=== PATIENT | female | born 1940 | race African-American/Black ===

== ENCOUNTER 2019-02-17 08:00 | Day surgery (SDC) | payer OTHER | END 2019-02-17 10:05 | disposition home or self-care (01) | LOC: FASU-ENDO 08:00 ==

== ENCOUNTER 2019-05-14 22:32 | Inpatient (IN) | payer OTHER ==
[2019-05-14 23:18] LABS: EOS % 1.3 % (0-4.5); HEMATOCRIT 31.7 % (32.4-45.2); HEMOGLOBIN 10.5 GM/dl (10.7-15.3); MCH 27.8 pg (25.7-33.7); MCHC 33.1 g/dl (32.0-36.0); MEAN CELL VOLUME 84.2 fl (80-96); MEAN PLT VOLUME 8.3 fl (7.5-11.1); NEUT % 67.7 % (42.8-82.8); PLATELET COUNT 202 K/MM3 (134-434); RBC 3.76 M/mm3 (3.60-5.2); RDW 12.1 % (11.6-15.6); WHITE BLOOD COUNT 4.9 K/mm3 (4.0-10.8)
[2019-05-14 23:30] LABS: ALBUMIN 3.9 g/dl (3.4-5.0); BILIRUBIN,TOTAL 0.5 mg/dl (0.2-1); CALCIUM 9.3 mg/dl (8.5-10); CREATININE 0.7 mg/dl (0.55-1.3); POTASSIUM 4.7 mmol/L (3.5-5.1); TOT PROT 7.9 g/dl (6.4-8.2)
[2019-05-15] MEDS ORDERED: ONDANSETRON 4 MG/2 ML VIAL IVPUSH ONE (01:53)
[2019-05-15] MEDS ORDERED: ONDANSETRON 4 MG/2 ML VIAL ONE (01:54)
--- NOTE | 2019-05-15 02:32 | PDOC ---
Documentation entered by Vicky Clifford SCRIBE, acting as scribe for Sarahy Silver MD. Sarahy Silver MD: This documentation has been prepared by the Darrin cedeno Adrianna, SCRIBE, under my direction and personally reviewed by me in its entirety. I confirm that the documentation accurately reflects all work, treatment, procedures, and medical decision making performed by me. History of Present Illness - General Chief Complaint: Migraine Headache Stated Complaint: H/A, DOUBLE VISION Time Seen by Provider: 05/14/19 22:37 - History of Present Illness Initial Comments: 05/14/19 23:21 This 78-year-old woman with a history of HTN/asthma/posterior circulation cerebral aneurysm ("small") presents with occipital headache/neck pain that began mid evening. Patient states that she had sudden severe burning type pain in the back of her head while watching television few hours prior to presentation. This was accompanied by nausea and vision changes: Patient describes "double vision" in both eyes that began at the same time as the pain and continued until she presented here in the ER. Her vision is currently without distortion. At home, she applied warm compresses to the back of her neck and took her high blood pressure medications (no other medications for headache pain)and her headache pain has improved to "3/10" severity level currently. Patient had a similar headache occurring the back of her head and neck 4 days ago. This headache was also severe and resolved with warm compresses to the neck. Although the patient has a history of intermittent headache in the past, no features consistent with migraine headaches have been present previously. Patient denies difficulty speaking/vertigo/facial or extremity weakness According to patient and her family, work-up of headaches a few years ago involved CT angiogram: This is when posterior circulation aneurysm was discovered History of left hip fracture earlier this year; recently discharged from inpatient rehab No history of smoking/daily alcohol use or other recreational drug use. Past History - Past Medical History Allergies/Adverse Reactions: Allergies Allergy/AdvReac Type Severity Reaction Status Date / Time FRANCESCA Inhibitors Allergy Severe Swelling Verified 01/07/14 07:54 nifedipine [From Procardia] Allergy Severe Low Blood Verified 01/07/14 07:54 Pressure Home Medications: Ambulatory Orders Clonidine HCl 0.2 mg PO BID 11/22/13 Furosemide [Lasix -] 20 mg PO DAILY 11/22/13 Amlodipine Besylate [Norvasc -] 10 mg PO DAILY 01/07/14 Losartan Potassium [Cozaar] 50 mg PO BID 01/07/14 Albuterol Sulfate Inhaler - [Ventolin Hfa Inhaler -] 1 - 2 inh PO Q4H PRN Aspirin [Aspirin EC] 81 mg PO DAILY 02/16/19 Azelastine/Fluticasone [Dymista Nasal [place]] 23 gm NS DAILY 02/16/19 Calcium Carb/Vitamin D3/Vit K1 [Viactiv 650 mg-12.5 Mcg Chew] 1 each PO BID Carbamazepine 100 mg PO TID 02/16/19 Carbamazepine 200 mg PO TID 02/16/19 Lamotrigine [Lamictal -] 100 mg PO TID 02/16/19 Metoprolol Succinate [Toprol Xl] 100 mg PO BID 02/16/19 Montelukast Na [Singulair -] 10 mg PO HS 02/16/19 Spironolactone [Aldactone] 50 mg PO DAILY 02/16/19 Anemia: No Asthma: Yes Cancer: No Cardiac Disorders: Yes (HEART MURMOR) CVA: No COPD: No CHF: No Dementia: No Diabetes: No GI Disorders: No Disorders: No HTN: Yes Hypercholesterolemia: No Liver Disease: No Seizures: No Thyroid Disease: No Other medical history: CEREBRAL ANEURYSM - Surgical History Abdominal Surgery: Yes (Exploratory Lap x2 for obstruction) Appendectomy: Yes Cardiac Surgery: No Cholecystectomy: Yes Lung Surgery: No Neurologic Surgery: No Orthopedic Surgery: Yes (Left Hip Replacement 09/11/18) - Psycho Social/Smoking Cessation Hx Smoking History: Never smoked Have you smoked in the past 12 months: No Number of Cigarettes Smoked Daily: 0 Hx Alcohol Use: No Drug/Substance Use Hx: No Substance Use Type: None Hx Substance Use Treatment: No Review of Systems - Review of Systems Able to Perform ROS?: Yes Comments:: 12 point review of systems is negative except for what is noted in the history of present illness *Physical Exam - Vital Signs Last Vital Signs Temp Pulse Resp BP Pulse Ox 97.4 F L 67 16 187/54 H 98 05/14/19 22:35 05/14/19 22:35 05/14/19 22:35 05/14/19 22:35 05/14/19 22:35 - Physical Exam Comments: GENERAL: Adult female, alert and oriented x3, no acute distress HEAD: Normal with no signs of trauma. EYES: PERRLA, EOMI, sclera anicteric, conjunctiva clear. ENT: Ears normal, nares patent, oropharynx clear without exudates. Dry mucous membranes. NECK: Normal range of motion, supple without lymphadenopathy, JVD, or masses. No meningismus. Mild paraspinal pain elicited with full flexion LUNGS: Breath sounds equal, clear to auscultation bilaterally. No wheezes, and no crackles. HEART:Regular rate and rhythm, normal S1 and S2 3/6 systolic murmur left sternal border, rub or gallop. ABDOMEN:.normal bowel sounds No guarding,tenderness or rebound.No masses No distention. EXTREMITIES: Normal range of motion, no edema. No clubbing or cyanosis. No erythema, or tenderness. NEUROLOGICAL: Cranial nerves II through XII grossly intact. Normal speech. No pronator drift. Motor 5/5 throughout twelve-lead electrocardiogram Twelve-lead electrocardiogram is performed performed: Normal sinus rhythm at 60 bpm. First-degree AV block with MO interval of 216 MS. LVH with repolarization abnormality. No acute ST wave abnormalities. No previous EKG tracing available for comparison. ED Treatment Course - LABORATORY CBC & Chemistry Diagram: 05/14/19 22:52 05/14/19 23:11 Medical Decision Making - Medical Decision Making As noted above, this 78-year-old woman with a history of hypertension presents with history of severe occipital headache accompanied by nausea/vision changes few hours prior to presentation. Past history notable for apparent posterior circulation cerebral aneurysm seen on CT angiogram performed a few years ago. Patient has improvement in her symptoms on presentation. Exam as noted. CBC/chemistry profile essentially normal Noncontrast head CT reveals no evidence of acute intracranial pathology. Patient currently free of any headache pain (states that pain "comes and goes") but still has some residual nausea. Patient given Zofran 4 mg IV. 05/15/19 01:[address] Vasquez who is on-call for neurology: Admission for 24- hour observation warranted in this patient with history of severe headache and apparent posterior circulation aneurysm. ESR should be evaluated, as well as repeat of standard labs in the morning. CT angiogram planned for tomorrow 05/15/19 02:33 Patient[address] [facility] Carty of [facility] ([facility] not admit here). [facility] of [facility]ist service. Patient admitted (inpatient status) to Dr. Harris. Discharge - Discharge Information Problems reviewed: Yes Clinical Impression/Diagnosis: Cerebrovascular aneurysm, Recurrent occipital headache Condition: Stable - Admission Yes - Follow up/Referral - Patient Discharge Instructions - Post Discharge Activity
[2019-05-15 03:17] VITALS: BMI 23.2
[2019-05-15] MEDS ORDERED: ALBUTEROL SO4 8 GM HFA INHALER IH PRN (07:18)
[2019-05-15 09:30] LABS: BASO % 0.6 % (0-2.0); EOS % 1.7 % (0-4.5); HEMATOCRIT 28.8 % (32.4-45.2); HEMOGLOBIN 9.7 GM/dl (10.7-15.3); MCH 28.5 pg (25.7-33.7); MCHC 33.7 g/dl (32.0-36.0); MEAN CELL VOLUME 84.7 fl (80-96); MEAN PLT VOLUME 8.9 fl (7.5-11.1); MONO % 9.6 % (3.8-10.2); NEUT % 62.1 % (42.8-82.8); PLATELET COUNT 179 K/MM3 (134-434); RDW 12.1 % (11.6-15.6); WHITE BLOOD COUNT 4.5 K/mm3 (4.0-10.8)
[2019-05-15 09:34] LABS: AMORP PHOS 3+ /hpf (NONE SEEN); EPITHELIAL CELLS FEW /hpf
[2019-05-15 09:34] LABS: CALCIUM 9.1 mg/dl (8.5-10); CREATININE 0.6 mg/dl (0.55-1.3); POTASSIUM 4.4 mmol/L (3.5-5.1)
--- NOTE | 2019-05-15 09:43 | PN ---
Progress Note (short form) - Note Progress Note: Patient is admitted to the floor CTA done not read If headache is better and no aneurysm on CAt patient can go home I can see [facility] patient on follow up tomorrow at 2:30 in my office Best regards Lorraine Vasquez MD
[2019-05-15] MEDS ORDERED: PATIENT'S OWN MEDICATION (NON-FORMULARY) (Clonidine Hcl [Clonidine Hcl] 0.2 MG) PO SCH (10:00)
[2019-05-15] MEDS ORDERED: FUROSEMIDE 20 MG TABLET (FP) PO SCH (10:00)
[2019-05-15] MEDS ORDERED: amLODIPine BESYLATE 10 MG TABLET (FP) PO SCH (10:00)
[2019-05-15] MEDS ORDERED: LOSARTAN POTASSIUM 50 MG TABLET (FP) PO SCH (10:00)
[2019-05-15] MEDS: cloNIDine HCL 0.1 MG TABLET PO SCH ×2 (10:08→10:13)
--- NOTE | 2019-05-15 10:51 | EKG ---
Test Reason : Blood Pressure : / mmHG Vent. Rate : 060 BPM Atrial Rate : 060 BPM P-R Int : 216 ms QRS Dur : 080 ms QT Int : 422 ms P-R-T Axes : 090 016 162 degrees QTc Int : 422 ms SINUS RHYTHM WITH 1ST DEGREE A-V BLOCK LEFT VENTRICULAR HYPERTROPHY WITH REPOLARIZATION ABNORMALITY ABNORMAL ECG NO PREVIOUS ECGS AVAILABLE Confirmed by ANNIE SALDAÑA MD ([id number]) on 05/15/2019 10:50:46 AM Referred By: DR FERNANDES Confirmed By:ANNIE SALDAÑA MD
--- NOTE | 2019-05-15 11:18 | HP ---
CHIEF COMPLAINT: Headache, vision changes PCP: Dr. 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 Patient states that she had sudden severe burning type pain in the back of her head while watching television for a few hours prior to presentation. This was accompanied by nausea and double vision in both eyes. Patient's , a retired radiologist, was present and states patient showed no focal deficints: no change in speech, no facial droop, no gait instability, no limb weakness. Symptoms were resolved by time patient came to ED. 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 Smoking: never Alcohol: no Drugs: no Allergies FRANCESCA Inhibitors Allergy (Severe, Verified 01/07/14 07:54) Swelling nifedipine [From Procardia] Allergy (Severe, Verified 01/07/14 07:54) Low Blood Pressure Home Medications Medication Instructions Recorded Clonidine HCl 0.2 mg PO BID 11/22/13 Furosemide [Lasix -] 20 mg PO DAILY 11/22/13 Amlodipine Besylate [Norvasc -] 10 mg PO DAILY 01/07/14 Losartan Potassium [Cozaar] 50 mg PO BID 01/07/14 Albuterol Sulfate Inhaler - 1 - 2 inh PO Q4H PRN 02/16/19 [Ventolin Hfa Inhaler -] Aspirin [Aspirin EC] 81 mg PO DAILY 02/16/19 Azelastine/Fluticasone [Dymista 23 gm NS DAILY 02/16/19 Nasal [place]] Calcium Carb/Vitamin D3/Vit K1 1 each PO BID 02/16/19 [Viactiv 650 mg-12.5 Mcg Chew] Carbamazepine 100 mg PO TID 02/16/19 Carbamazepine 200 mg PO TID 02/16/19 Lamotrigine [Lamictal -] 100 mg PO TID 02/16/19 Metoprolol Succinate [Toprol Xl] 100 mg PO BID 02/16/19 Montelukast Na [Singulair -] 10 mg PO HS 02/16/19 Spironolactone [Aldactone] 50 mg PO DAILY 02/16/19 REVIEW OF SYSTEMS CONSTITUTIONAL: Absent: fever, chills, diaphoresis, generalized weakness, malaise, loss of appetite, weight change HEENT: Absent: rhinorrhea, nasal congestion, throat pain, throat swelling, difficulty swallowing, mouth swelling, ear pain, eye pain, visual changes CARDIOVASCULAR: Absent: chest pain, syncope, palpitations, irregular heart rate, lightheadedness , peripheral edema RESPIRATORY: Absent: cough, shortness of breath, dyspnea with exertion, orthopnea, wheezing, stridor, hemoptysis GASTROINTESTINAL: Absent: abdominal pain, abdominal distension, nausea, vomiting, diarrhea, constipation, melena, hematochezia GENITOURINARY: Absent: dysuria, frequency, urgency, hesitancy, hematuria, flank pain, genital pain MUSCULOSKELETAL: Absent: myalgia, arthralgia, joint swelling, back pain, neck pain SKIN: Absent: rash, itching, pallor HEMATOLOGIC/IMMUNOLOGIC: Absent: easy bleeding, easy bruising, lymphadenopathy, frequent infections ENDOCRINE: Absent: unexplained weight gain, unexplained weight loss, heat intolerance, cold intolerance NEUROLOGIC: +headache, double vision Absent: focal weakness or paresthesias, dizziness, unsteady gait, seizure, mental status changes, bladder or bowel incontinence PSYCHIATRIC: Absent: anxiety, depression, suicidal or homicidal ideation, hallucinations. PHYSICAL EXAMINATION Vital Signs - 24 hr 05/14/19 05/15/19 05/15/19 22:35 00:34 02:56 Temperature 97.4 F L 97.9 F Pulse Rate 67 62 Pulse Rate [ 56 L Radial] Respiratory 16 16 16 Rate Blood Pressure 187/54 H 137/44 L Blood Pressure 139/63 [Arm] O2 Sat by Pulse 98 97 97 Oximetry (%) 05/15/19 05/15/19 05/15/19 06:41 08:25 08:38 Temperature 97.5 F L Pulse Rate 54 L 58 L Pulse Rate [ Radial] Respiratory 18 18 19 Rate Blood Pressure 134/50 L 152/57 L Blood Pressure [Arm] O2 Sat by Pulse 96 96 96 Oximetry (%) 05/15/19 10:09 Temperature Pulse Rate 59 L Pulse Rate [ Radial] Respiratory 18 Rate Blood Pressure 147/60 Blood Pressure [Arm] O2 Sat by Pulse 96 Oximetry (%) GENERAL: Awake, alert, and fully oriented, in no acute distress. HEAD: Normal with no signs of trauma. EYES: Pupils equal, round and reactive to light, extraocular movements intact, sclera anicteric, conjunctiva clear. No lid lag. LUNGS: Breath sounds equal, clear to auscultation bilaterally. No wheezes, and no crackles. No accessory muscle use. HEART: Regular rate and rhythm, normal S1 and S2 MUSCULOSKELETAL: Normal range of motion at all joints. No bony deformities or tenderness. No CVA tenderness. UPPER EXTREMITIES: 2+ pulses, warm, well-perfused. No cyanosis. No clubbing. No peripheral edema. LOWER EXTREMITIES: 2+ pulses, warm, well-perfused. No calf tenderness. No peripheral edema. NEUROLOGICAL: Cranial nerves II-XII intact. Normal speech. Laboratory Results - last 24 hr 05/14/19 05/14/19 05/14/19 22:52 23:11 23:11 WBC 4.9 RBC 3.76 Hgb 10.5 L Hct 31.7 L MCV 84.2 MCH 27.8 MCHC 33.1 RDW 12.1 Plt Count 202 MPV 8.3 Absolute Neuts (auto) 3.3 Neutrophils % 67.7 Lymphocytes % 21.0 Monocytes % 8.0 Eosinophils % 1.3 Basophils % 2.0 Sodium 128 L Potassium 4.7 Chloride 92 L Carbon Dioxide 27 Anion Gap 9 BUN 18.0 Creatinine 0.7 Est GFR (CKD-EPI)AfAm 96.18 Est GFR (CKD-EPI)NonAf 82.99 Random Glucose 128 H Calcium 9.3 Total Bilirubin 0.5 AST 21 ALT 16 Alkaline Phosphatase 71 Creatine Kinase 117 CK-MB (CK-2) 1.4 Troponin I Total Protein 7.9 Albumin 3.9 Urine Color Urine Appearance Urine pH Urine Protein Urine Glucose (UA) Urine Ketones Urine Blood Urine Nitrite Urine Bilirubin Urine Urobilinogen Ur Leukocyte Esterase Urine RBC Urine WBC Ur Transition Epith Cell Amorphous Phosphates Urine Bacteria Ur Random Sodium Ur Random Potassium Ur Random Chloride 05/14/19 05/15/19 05/15/19 23:11 06:18 09:00 WBC 4.5 RBC 3.40 L Hgb 9.7 L Hct 28.8 L MCV 84.7 MCH 28.5 MCHC 33.7 RDW 12.1 Plt Count 179 MPV 8.9 Absolute Neuts (auto) 2.8 Neutrophils % 62.1 Lymphocytes % 26.0 Monocytes % 9.6 Eosinophils % 1.7 Basophils % 0.6 Sodium Potassium Chloride Carbon Dioxide Anion Gap BUN Creatinine Est GFR (CKD-EPI)AfAm Est GFR (CKD-EPI)NonAf Random Glucose Calcium Total Bilirubin AST ALT Alkaline Phosphatase Creatine Kinase CK-MB (CK-2) Troponin I < 0.03 Total Protein Albumin Urine Color Urine Appearance Urine pH Urine Protein Urine Glucose (UA) Urine Ketones Urine Blood Urine Nitrite Urine Bilirubin Urine Urobilinogen Ur Leukocyte Esterase Urine RBC Urine WBC Ur Transition Epith Cell Amorphous Phosphates Urine Bacteria Ur Random Sodium 66 Ur Random Potassium 51.6 Ur Random Chloride 73 L 05/15/19 05/15/19 09:00 09:20 WBC RBC Hgb Hct MCV MCH MCHC RDW Plt Count MPV Absolute Neuts (auto) Neutrophils % Lymphocytes % Monocytes % Eosinophils % Basophils % Sodium 128 L Potassium 4.4 Chloride 91 L Carbon Dioxide 29 Anion Gap 8 BUN 14.0 Creatinine 0.6 Est GFR (CKD-EPI)AfAm 101.18 Est GFR (CKD-EPI)NonAf 87.30 Random Glucose 79 Calcium 9.1 Total Bilirubin AST ALT Alkaline Phosphatase Creatine Kinase CK-MB (CK-2) Troponin I Total Protein Albumin Urine Color Yellow Urine Appearance Slightly Urine pH 7.5 Urine Protein 1+ H Urine Glucose (UA) Negative Urine Ketones Negative Urine Blood Negative Urine Nitrite Negative Urine Bilirubin Negative Urine Urobilinogen 0.2 Ur Leukocyte Esterase Negative Urine RBC 0-2 Urine WBC 0-2 Ur Transition Epith Cell Few Amorphous Phosphates 3+ Urine Bacteria Few Ur Random Sodium Ur Random Potassium Ur Random Chloride ASSESSMENT/PLAN 78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 Admitted for headache, double vision. Headache, acute on chronic Double vision h/o posterior circulation cerebral aneurysm --transient symptoms, resolved --PCP has been titrating lamotrigine, carbamazepine for headache management, possible med interaction --CT head negative for acute process; CTA pending --neuro consult Hypertension --BP stable --continue clonidine, ToprolXL, amlodipine, Lasix Asthma --stable Recurrent SBOs --stable Hyponatremia --chronic, at baseline per patient's FEN Fluids: PO intake adequate Electrolytes: replete as indicated Nutrition: low sodium DVT prophylaxis: oob, early ambulation, SCDs Dispo: continues to require inpatient care. Full code. Visit type - Emergency Visit Emergency Visit: Yes ED Registration Date: 05/15/19 Care time: The patient presented to the Emergency Department on the above date and was hospitalized for further evaluation of their emergent condition. - New Patient This patient is new to me today: Yes Date on this admission: 05/19/19 - Critical Care Critical Care patient: No
[2019-05-15] MEDS ORDERED: ALBUTEROL SO4 2.5/IPRATROPIUM 0.5 INH SOL 3 ML VIAL.NEB. NEB PRN (12:51)
[2019-05-15] MEDS ORDERED: cloNIDine HCL 0.1 MG TABLET PO SCH ×2 (14:00→14:30)
[2019-05-15] MEDS ORDERED: carBAMazepine 100 MG TAB.CHEW PO SCH ×3 (14:00→22:00)
[2019-05-15] MEDS ORDERED: lamoTRIgine 100 MG TABLET (FP) PO SCH (14:00)
[2019-05-15] MEDS ORDERED: carBAMazepine 200 MG TABLET PO SCH (14:31)
[2019-05-15 14:33] VITALS: TEMP 97.8
--- NOTE | 2019-05-15 16:01 | DS ---
Physical Exam: SUBJECTIVE: Patient seen and examined OBJECTIVE: Vital Signs Period Temp Pulse Resp BP Sys/[place]la Pulse Ox Last 24 Hr 97.4 F-97.9 F 54-67 16-19 134-187/41-63 95-98 PHYSICAL EXAM GENERAL: Awake, alert, and fully oriented, in no acute distress. HEAD: Normal with no signs of trauma. EYES: Pupils equal, round and reactive to light, extraocular movements intact, sclera anicteric, conjunctiva clear. No lid lag. LUNGS: Breath sounds equal, clear to auscultation bilaterally. No wheezes, and no crackles. No accessory muscle use. HEART: Regular rate and rhythm, normal S1 and S2 MUSCULOSKELETAL: Normal range of motion at all joints. No bony deformities or tenderness. No CVA tenderness. UPPER EXTREMITIES: 2+ pulses, warm, well-perfused. No cyanosis. No clubbing. No peripheral edema. LOWER EXTREMITIES: 2+ pulses, warm, well-perfused. No calf tenderness. No peripheral edema. NEUROLOGICAL: Cranial nerves II-XII intact. Normal speech. LABS Laboratory Results - last 24 hr 05/14/19 05/14/19 05/14/19 22:52 23:11 23:11 WBC 4.9 RBC 3.76 Hgb 10.5 L Hct 31.7 L MCV 84.2 MCH 27.8 MCHC 33.1 RDW 12.1 Plt Count 202 MPV 8.3 Absolute Neuts (auto) 3.3 Neutrophils % 67.7 Lymphocytes % 21.0 Monocytes % 8.0 Eosinophils % 1.3 Basophils % 2.0 ESR Sodium 128 L Potassium 4.7 Chloride 92 L Carbon Dioxide 27 Anion Gap 9 BUN 18.0 Creatinine 0.7 Est GFR (CKD-EPI)AfAm 96.18 Est GFR (CKD-EPI)NonAf 82.99 Random Glucose 128 H Serum Osmolality Calcium 9.3 Total Bilirubin 0.5 AST 21 ALT 16 Alkaline Phosphatase 71 Creatine Kinase 117 CK-MB (CK-2) 1.4 Troponin I C-Reactive Protein Total Protein 7.9 Albumin 3.9 Urine Color Urine Appearance Urine pH Urine Protein Urine Glucose (UA) Urine Ketones Urine Blood Urine Nitrite Urine Bilirubin Urine Urobilinogen Ur Leukocyte Esterase Urine RBC Urine WBC Ur Transition Epith Cell Amorphous Phosphates Urine Bacteria Urine Osmolality Ur Random Sodium Ur Random Potassium Ur Random Chloride 05/14/19 05/15/19 05/15/19 23:11 06:18 09:00 WBC 4.5 RBC 3.40 L Hgb 9.7 L Hct 28.8 L MCV 84.7 MCH 28.5 MCHC 33.7 RDW 12.1 Plt Count 179 MPV 8.9 Absolute Neuts (auto) 2.8 Neutrophils % 62.1 Lymphocytes % 26.0 Monocytes % 9.6 Eosinophils % 1.7 Basophils % 0.6 ESR Sodium Potassium Chloride Carbon Dioxide Anion Gap BUN Creatinine Est GFR (CKD-EPI)AfAm Est GFR (CKD-EPI)NonAf Random Glucose Serum Osmolality Calcium Total Bilirubin AST ALT Alkaline Phosphatase Creatine Kinase CK-MB (CK-2) Troponin I < 0.03 C-Reactive Protein Total Protein Albumin Urine Color Urine Appearance Urine pH Urine Protein Urine Glucose (UA) Urine Ketones Urine Blood Urine Nitrite Urine Bilirubin Urine Urobilinogen Ur Leukocyte Esterase Urine RBC Urine WBC Ur Transition Epith Cell Amorphous Phosphates Urine Bacteria Urine Osmolality Ur Random Sodium 66 Ur Random Potassium 51.6 Ur Random Chloride 73 L 05/15/19 05/15/19 05/15/19 09:00 09:00 09:20 WBC RBC Hgb Hct MCV MCH MCHC RDW Plt Count MPV Absolute Neuts (auto) Neutrophils % Lymphocytes % Monocytes % Eosinophils % Basophils % ESR Sodium 128 L Potassium 4.4 Chloride 91 L Carbon Dioxide 29 Anion Gap 8 BUN 14.0 Creatinine 0.6 Est GFR (CKD-EPI)AfAm 101.18 Est GFR (CKD-EPI)NonAf 87.30 Random Glucose 79 Serum Osmolality 271 L Calcium 9.1 Total Bilirubin AST ALT Alkaline Phosphatase Creatine Kinase CK-MB (CK-2) Troponin I C-Reactive Protein 1.7 H Total Protein Albumin Urine Color Yellow Urine Appearance Slightly Urine pH 7.5 Urine Protein 1+ H Urine Glucose (UA) Negative Urine Ketones Negative Urine Blood Negative Urine Nitrite Negative Urine Bilirubin Negative Urine Urobilinogen 0.2 Ur Leukocyte Esterase Negative Urine RBC 0-2 Urine WBC 0-2 Ur Transition Epith Cell Few Amorphous Phosphates 3+ Urine Bacteria Few Urine Osmolality 526 Ur Random Sodium Ur Random Potassium Ur Random Chloride 05/15/19 12:44 WBC RBC Hgb Hct MCV MCH MCHC RDW Plt Count MPV Absolute Neuts (auto) Neutrophils % Lymphocytes % Monocytes % Eosinophils % Basophils % ESR 77 H Sodium Potassium Chloride Carbon Dioxide Anion Gap BUN Creatinine Est GFR (CKD-EPI)AfAm Est GFR (CKD-EPI)NonAf Random Glucose Serum Osmolality Calcium Total Bilirubin AST ALT Alkaline Phosphatase Creatine Kinase CK-MB (CK-2) Troponin I C-Reactive Protein Total Protein Albumin Urine Color Urine Appearance Urine pH Urine Protein Urine Glucose (UA) Urine Ketones Urine Blood Urine Nitrite Urine Bilirubin Urine Urobilinogen Ur Leukocyte Esterase Urine RBC Urine WBC Ur Transition Epith Cell Amorphous Phosphates Urine Bacteria Urine Osmolality Ur Random Sodium Ur Random Potassium Ur Random Chloride HOSPITAL COURSE: Date of Admission:05/15/19 Date of Discharge: 05/15/19 Pre hospital course 78 year-old female, retired barge worker, with a PMH significant for HTN, asthma , recurrent SBOs, chronic headaches, and a small posterior circulation cerebral aneurysm presents with occipital headache/neck pain that began mid evening. Patient states that she had sudden severe burning type pain in the back of her head while watching television for a few hours prior to presentation. This was accompanied by nausea and double vision in both eyes. Patient's , a retired radiologist, was present and states patient showed no focal deficints: no change in speech, no facial droop, no gait instability, no limb weakness. Symptoms were resolved by time patient came to ED. 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 Admitted for headache, double vision. Headache, acute on chronic Episode of double vision h/o posterior circulation cerebral aneurysm --transient symptoms, resolved --PCP has been titrating lamotrigine, carbamazepine for headache management, possible med interaction --CT head negative for acute process --CTA: no aneurysm in the major arterial vessels of the [place] --neuro consult: outpatient follow up Hypertension --BP stable --continued clonidine, ToprolXL, amlodipine, Lasix Asthma --stable Recurrent SBOs --stable Hyponatremia --chronic, at baseline per patient's Minutes to complete discharge: 35 Discharge Summary Problems reviewed: Yes Reason For Visit: H/A, DOUBLE VISION Current Active Problems Cerebrovascular aneurysm (Acute) Recurrent occipital headache (Acute) Condition: Improved - Instructions Diet, Activity, Other Instructions: It is recommended you follow up with your neurologist, Dr. Dinora Coles at your earliest opportunity. We will provide you with a CD-ROM of your CT imaging done during this visit. Please return to the emergency department for any new or worsening symptoms. Referrals: Dinora Coles [Non Staff, Medical] - Disposition: HOME - Home Medications Comprehensive Discharge Medication List: Ambulatory Orders Clonidine HCl 0.2 mg PO BID 11/22/13 Furosemide [Lasix -] 20 mg PO DAILY 11/22/13 Amlodipine Besylate [Norvasc -] 10 mg PO DAILY 01/07/14 Losartan Potassium [Cozaar] 50 mg PO BID 01/07/14 Albuterol Sulfate Inhaler - [Ventolin Hfa Inhaler -] 1 - 2 inh PO Q4H PRN Aspirin [Aspirin EC] 81 mg PO DAILY 02/16/19 Azelastine/Fluticasone [Dymista Nasal [place]] 23 gm NS DAILY 02/16/19 Calcium Carb/Vitamin D3/Vit K1 [Viactiv 650 mg-12.5 Mcg Chew] 1 each PO BID Carbamazepine 100 mg PO TID 02/16/19 Carbamazepine 200 mg PO TID 02/16/19 Lamotrigine [Lamictal -] 100 mg PO TID 02/16/19 Metoprolol Succinate [Toprol Xl] 100 mg PO BID 02/16/19 Montelukast Na [Singulair -] 10 mg PO HS 02/16/19 Spironolactone [Aldactone] 50 mg PO DAILY 02/16/19 Carbamazepine 200 mg PO BID 05/15/19 This patient is new to me today: No Emergency Visit: Yes ED Registration Date: 05/15/19 Care time: The patient presented to the Emergency Department on the above date and was hospitalized for further evaluation of their emergent condition. Critical Care patient: No - Discharge Referral Referred to [facility] No
[2019-05-15 16:40] VITALS: BP 158/51; PULSE 64
[2019-05-16] MEDS ORDERED: carBAMazepine 100 MG TAB.CHEW PO SCH (08:00)
== END 2019-05-15 17:00 | disposition home or self-care (01) | DRG 103 ==
LOC: FER 22:32 → FM/S 05-15 02:34
PROVIDERS: ADMIT Internal Medicine; ATTEND Nurse Practitioner Acute Care
DX: R51 Headache (principal); E87.1 Hypo-osmolality and hyponatremia; I67.1 Cerebral aneurysm, nonruptured; I10 Essential (primary) hypertension; J45.909 Unspecified asthma, uncomplicated
CPT/HCPCS: 36415; 70450-TC; 70496-TC; 80048; 80053; 81003; 81015; 82436; 82550; 82553; 83930; 83935; 84133; 84300; 84484; 85025; 85651; 86140; 93005; 99285-25; J0735; Q9967

== ENCOUNTER 2019-06-19 08:04 | Emergency (ER) | payer OTHER ==
[2019-06-19 08:19] VITALS: TEMP 97.8; BMI 23.2
[2019-06-19] MEDS ORDERED: ONDANSETRON 4 MG TABLET PO ONE ×2 (08:32→08:57)
[2019-06-19] MEDS ORDERED: ALPRAZolam 0.25 MG TABLET ONE (08:33)
--- NOTE | 2019-06-19 08:57 | PDOC ---
History of Present Illness - General Chief Complaint: Migraine Headache Stated Complaint: HEADACHE Time Seen by Provider: 06/19/19 08:57 - History of Present Illness Initial Comments: 06/19/19 10:33 Chief complaint: Headache HPI: Patient with a long history of headaches, multiple CT, CT CTA, neurology consultations. Told she had migraines, but not placed on any prophylactic medication. Also with high blood pressure that seems to be related to the headaches, though anxiety seems always to be present and the blood pressure elevation may be secondary to the headache/anxiety cycle. Today she woke up at 3 AM with a headache, typical to prior headaches, mild nausea but no neurological symptoms or photophobia. Took her blood pressure medication after noting a reading at home of approximately 170/85. Did not take any analgesics. Review of systems: Denies fever/chills, recent URI symptoms, sore throat, cough , chest pain, shortness of breath, abdominal pain, vomiting, diarrhea, visual or focal neurologic symptoms, unsteadiness of gait. Remainder of systems reviewed and negative Past medical history: High blood pressure, elevated cholesterol, migraine headaches. Multiple medications as noted. States she is allergic to Procardia and FRANCESCA inhibitors. Social history: Retired physician, lives with family, does not admit anxiety, but family members who accompany the patient feels that this is a significant component. No tobacco alcohol or nonprescription drugs. Family history: Reviewed and noncontributory including early coronary artery disease, metabolic diseases including diabetes, and cancer. Physical exam: Alert and oriented well-developed well-nourished, anxious and tearful, but otherwise in no acute distress. Headache is resolving, as is the nausea. Blood pressure initially elevated, but normalized with rest and reassurance. Other vital signs normal PERRLA 4 mm, fundi benign with sharp discs margins good central venous pulsations and no hemorrhages or exudates. Conjunctivae clear. Visual haskins intact to confrontation. EOMs full without diplopia ENT clear Neck supple without bruit mass or nodes Chest clear CV regular without murmur rub or gallop Abdomen soft nontender without mass organomegaly Neurological C2 to 12 intact. Strength full and symmetric. No focal sensorimotor deficits. Gait stable and impaired. Cerebellar function intact Extremities no CCE Skin clear, no rash, adequate turgor and wet mucous membranes Impression: Typical headache, possibly migraine variant, no other acute focal neurologic symptoms, anxiety. Plan: Symptomatic treatment, observation, neurology referral, further evaluation depending on response to therapy. Past History - Past Medical History Allergies/Adverse Reactions: Allergies Allergy/AdvReac Type Severity Reaction Status Date / Time FRANCESCA Inhibitors Allergy Severe Swelling Verified 06/19/19 08:43 nifedipine [From Procardia] Allergy Severe Low Blood Verified 06/19/19 08:43 Pressure Home Medications: Ambulatory Orders Clonidine HCl 0.2 mg PO BID 11/22/13 Furosemide [Lasix -] 20 mg PO DAILY 11/22/13 Amlodipine Besylate [Norvasc -] 10 mg PO DAILY 01/07/14 Losartan Potassium [Cozaar] 50 mg PO BID 01/07/14 Albuterol Sulfate Inhaler - [Ventolin HFA Inhaler -] 1 - 2 inh PO Q4H PRN Aspirin [Aspirin EC] 81 mg PO DAILY 02/16/19 Azelastine/Fluticasone [Dymista Nasal [place]] 23 gm NS DAILY 02/16/19 Calcium Carb/Vitamin D3/Vit K1 [Viactiv 650 mg-12.5 Mcg Chew] 1 each PO BID Lamotrigine [LaMICtal -] 100 mg PO TID 02/16/19 Metoprolol Succinate [Toprol Xl] 100 mg PO BID 02/16/19 Montelukast Na [Singulair -] 10 mg PO HS 02/16/19 Spironolactone [Aldactone -] 50 mg PO DAILY 02/16/19 Carbamazepine [Tegretol -] 200 mg PO 1400 tablet 05/15/19 Carbamazepine [Tegretol -] 300 mg PO BID tab.chew 05/15/19 Alprazolam 0.25 mg PO DAILY PRN #20 tablet MDD 1 06/19/19 Anemia: No Asthma: Yes Cancer: No Cardiac Disorders: Yes (HEART MURMOR) CVA: No COPD: No CHF: No Dementia: No Diabetes: No GI Disorders: No Disorders: No HTN: Yes Hypercholesterolemia: No Liver Disease: No Seizures: No Thyroid Disease: No Other medical history: MIGRAINE - Surgical History Abdominal Surgery: Yes (Exploratory Lap x2 for obstruction) Appendectomy: Yes Cardiac Surgery: No Cholecystectomy: Yes Lung Surgery: No Neurologic Surgery: No Orthopedic Surgery: Yes (Left Hip Replacement 09/11/18) - Psycho Social/Smoking Cessation Hx Smoking History: Never smoked Have you smoked in the past 12 months: No Number of Cigarettes Smoked Daily: 0 Hx Alcohol Use: No Drug/Substance Use Hx: No Substance Use Type: None Hx Substance Use Treatment: No *Physical Exam - Vital Signs Last Vital Signs Temp Pulse Resp BP Pulse Ox 97.8 F 60 15 156/60 99 06/19/19 08:05 06/19/19 08:29 06/19/19 08:29 06/19/19 08:29 06/19/19 08:05 Medical Decision Making - Medical Decision Making 06/19/19 10:43 With rest and reassurance, the patient's blood pressure gradually came down to the 130/80 range. Nausea resolved with Zofran. Anxiety seemed improved with a small dose of Xanax. Patient was symptom-free at discharge with family. Neurological referral was furnished for a "second opinion", since she feels her neurologist is not adequately responsive. To return to ER if symptoms worsen, otherwise follow-up with primary physician and neurologist as directed. Discharge - Discharge Information Problems reviewed: Yes Clinical Impression/Diagnosis: Recurrent occipital headache Condition: Improved Disposition: HOME - Admission No - Additional Discharge Information Prescriptions: Alprazolam 0.25 mg PO DAILY PRN #20 tablet MDD 1 PRN Reason: as needed for agitation - Follow up/Referral Referrals: Carmine Garrett MD [Staff Physician] - - Patient Discharge Instructions Patient Printed Discharge Instructions: DI for Headache - Post Discharge Activity
[2019-06-19] MEDS ORDERED: ALPRAZolam 0.25 MG TABLET PO ONE (08:58)
[2019-06-19 09:38] VITALS: BP 130/54; PULSE 54
== END 2019-06-19 09:55 | disposition home or self-care (01) ==
LOC: SUPCPDRO 08:04 → FER 08:04
DX: R51 Headache (principal); Z88.8 Allergy status to other drugs, medicaments and biological substances; J45.909 Unspecified asthma, uncomplicated; R01.1 Cardiac murmur, unspecified; G43.909 Migraine, unspecified, not intractable, without status migrainosus; I10 Essential (primary) hypertension
CPT/HCPCS: 99282-25

== ENCOUNTER 2022-06-03 17:38 | Emergency (ER) | payer OTHER ==
[2022-06-03 18:19] VITALS: BP 168/69; RESP 18; TEMP 100; BMI 22.4
[2022-06-03] MEDS ORDERED: ALBUTEROL SO4 2.5/IPRATROPIUM 0.5 INH SOL 3 ML VIAL.NEB. NEB ONE ×4 (20:19→22:31)
[2022-06-03 21:26] VITALS: PULSE 87
[2022-06-03] MEDS ORDERED: predniSONE 20 MG TABLET (UD) PO ONE (22:27)
[2022-06-03] MEDS ORDERED: predniSONE 20 MG TABLET (UD) ONE (22:30)
== END 2022-06-03 22:41 | disposition home or self-care (01) ==
LOC: FER 17:38
PROC: 3E0F7GC Introduction of Other Therapeutic Substance into Respiratory Tract, Via Natural or Artificial Opening (ICD-10-PCS; principal; 2022-06-03)
DX: J20.5 Acute bronchitis due to respiratory syncytial virus (principal); J98.01 Acute bronchospasm
CPT/HCPCS: 0241U-QW; 71046-TC-FY; 99285-25

== ENCOUNTER 2022-06-16 13:09 | Inpatient (IN) | payer OTHER ==
[2022-06-16] MEDS ORDERED: ALBUTEROL SO4 2.5/IPRATROPIUM 0.5 INH SOL 3 ML VIAL.NEB. NEB ONE ×4 (13:23→13:27)
[2022-06-16 14:10] LABS: HEMATOCRIT 32.4 % (32.4-45.2); HEMOGLOBIN 10.8 G/dL (10.7-15.3); MCH 28.6 pg (25.7-33.7); MCHC 33.4 g/dl (32.0-36.0); MEAN CELL VOLUME 85.5 fl (80-96); MEAN PLT VOLUME 8.2 fl (7.5-11.1); RBC 3.79 10^6/uL (3.60-5.2); RDW 14.1 % (11.6-15.6); WHITE BLOOD COUNT 7.5 10^3/uL (4.0-10.8)
[2022-06-16 14:38] LABS: ALBUMIN 4.3 g/dl (3.4-5.0); BILIRUBIN,TOTAL 0.3 mg/dl (0.2-1); CREATININE 1.1 mg/dl (0.55-1.3); TOT PROT 8.7 g/dl (6.4-8.2)
[2022-06-16] MEDS ORDERED: methylPREDNISolone NA SUCC 125 MG/2 ML VIAL IVPB ONE (14:45)
[2022-06-16] MEDS ORDERED: SODIUM CHLORIDE 0.9% 1000 ML INFUS.BAG IV ONE (14:45)
[2022-06-16 14:54] LABS: PLATELET ESTIMATE ADEQUATE
[2022-06-16] MEDS ORDERED: methylPREDNISolone NA SUCC 125 MG/2 ML VIAL ONE (14:54)
[2022-06-16] MEDS ORDERED: ALBUTEROL SO4 0.083% IH SOL 2.5 MG/3 ML VIAL.NEB. NEB ONE ×2 (15:25→15:37)
[2022-06-16] MEDS ORDERED: ALPRAZolam 0.25 MG TABLET PO PRN (15:57)
[2022-06-16] MEDS ORDERED: ACETAMINOPHEN 325 MG TABLET (FP) PO PRN (15:59)
[2022-06-16] MEDS ORDERED: ALBUTEROL SO4 2.5/IPRATROPIUM 0.5 INH SOL 3 ML VIAL.NEB. NEB PRN (16:04)
[2022-06-16 19:10] VITALS: BMI 22.6
[2022-06-16] MEDS: methylPREDNISolone NA SUCC 125 MG/2 ML VIAL IVPUSH SCH (21:02)
[2022-06-16] MEDS: MONTELUKAST NA 10 MG TABLET PO SCH (21:02)
[2022-06-16] MEDS: lamoTRIgine 100 MG TABLET PO SCH (21:03)
[2022-06-16] MEDS: LOSARTAN POTASSIUM 50 MG TABLET PO SCH (21:03)
[2022-06-16] MEDS: HEPARIN NA (PORCINE) 5,000 UNITS/ML 1ML VIAL SQ SCH (21:09)
[2022-06-16] MEDS ORDERED: carBAMazepine 100 MG TAB.CHEW PO SCH (22:00)
[2022-06-16] MEDS ORDERED: cloNIDine HCL 0.1 MG TABLET PO SCH (22:00)
[2022-06-17] MEDS ORDERED: APIXABAN 2.5 MG TABLET PO ONE (01:30)
[2022-06-17] MEDS: methylPREDNISolone NA SUCC 125 MG/2 ML VIAL IVPUSH SCH ×4 (02:47→21:45)
[2022-06-17] MEDS: HEPARIN NA (PORCINE) 5,000 UNITS/ML 1ML VIAL SQ SCH (06:16)
[2022-06-17] MEDS: lamoTRIgine 100 MG TABLET PO SCH ×3 (06:16→21:47)
[2022-06-17] MEDS ORDERED: PROPOFOL 20 ML ONE (08:01)
[2022-06-17] MEDS: carBAMazepine 200 MG TABLET PO SCH ×3 (08:28→16:52)
[2022-06-17 08:34] LABS: ALBUMIN 3.5 g/dl (3.4-5.0); BILIRUBIN,TOTAL 0.2 mg/dl (0.2-1); CALCIUM 9.3 mg/dl (8.5-10); CREATININE 1.2 mg/dl (0.55-1.3); MAGNESIUM 1.9 mg/dL (1.8-2.4); TOT PROT 7.2 g/dl (6.4-8.2)
[2022-06-17] MEDS ORDERED: amLODIPine BESYLATE 10 MG TABLET (FP) PO SCH (10:00)
[2022-06-17] MEDS ORDERED: PATIENT'S OWN MEDICATION (NON-FORMULARY) (Fluticasone/Vilanterol 1 PUFF Each) IH SCH (10:00)
[2022-06-17] MEDS ORDERED: SPIRONOLACTONE 25 MG TABLET PO SCH (10:00)
[2022-06-17 10:05] LABS: BASO % 0.2 % (0-2.0); HEMATOCRIT 29.2 % (32.4-45.2); HEMOGLOBIN 9.6 GM/dL (10.7-15.3); LYMPH % 9.3 % (8-40); MCH 28.1 pg (25.7-33.7); MCHC 32.7 g/dl (32.0-36.0); MEAN CELL VOLUME 85.9 fl (80-96); MEAN PLT VOLUME 8.8 fl (7.5-11.1); MONO % 0.7 % (3.8-10.2); NEUT % 89.8 % (42.8-82.8); PLATELET COUNT 213 10^3/uL (134-434); WHITE BLOOD COUNT 6.3 K/mm3 (4.0-10.0)
[2022-06-17] MEDS: LOSARTAN POTASSIUM 50 MG TABLET PO SCH ×2 (10:06→21:48)
[2022-06-17] MEDS: APIXABAN 2.5 MG TABLET PO SCH ×2 (10:06→21:53)
[2022-06-17] MEDS: ASPIRIN COATED 81 MG TABLET.EC PO SCH (10:09)
[2022-06-17] MEDS: FUROSEMIDE 20 MG TABLET (FP) PO SCH (10:09)
[2022-06-17] MEDS: FAMOTIDINE 20 MG TABLET PO SCH (10:11)
[2022-06-17] MEDS ORDERED: carBAMazepine 200 MG TABLET PO SCH (14:00)
[2022-06-17] MEDS: BUDESONIDE/FORMETEROL FUMARATE 160/4.5 mcg INHALER IH SCH (21:46)
[2022-06-17] MEDS: MONTELUKAST NA 10 MG TABLET PO SCH (21:50)
[2022-06-18] MEDS: methylPREDNISolone NA SUCC 125 MG/2 ML VIAL IVPUSH SCH ×2 (02:05→08:20)
[2022-06-18] MEDS: lamoTRIgine 100 MG TABLET PO SCH ×3 (05:53→16:34)
[2022-06-18] MEDS ORDERED: PROPOFOL 40 ML ONE (07:32)
[2022-06-18] MEDS ORDERED: SUCCINYLCHOLINE CHLORIDE 200 MG/10 ML SYRINGE ONE (07:33)
[2022-06-18] MEDS: carBAMazepine 200 MG TABLET PO SCH ×3 (08:16→16:40)
[2022-06-18 08:25] LABS: ALBUMIN 3.2 g/dl (3.4-5.0); BILIRUBIN,TOTAL 0.4 mg/dl (0.2-1); CALCIUM 9.2 mg/dl (8.5-10); TOT PROT 6.6 g/dl (6.4-8.2)
[2022-06-18] MEDS: ASPIRIN COATED 81 MG TABLET.EC PO SCH (09:21)
[2022-06-18] MEDS: FAMOTIDINE 20 MG TABLET PO SCH (09:21)
[2022-06-18] MEDS: LOSARTAN POTASSIUM 50 MG TABLET PO SCH ×2 (09:21→22:22)
[2022-06-18] MEDS: APIXABAN 2.5 MG TABLET PO SCH ×2 (09:22→22:22)
[2022-06-18] MEDS: FUROSEMIDE 20 MG TABLET (FP) PO SCH (09:22)
[2022-06-18] MEDS: metoPROLOL SUCCINATE 25 MG TAB.SR.24H (FP) PO SCH (09:38)
[2022-06-18] MEDS: BUDESONIDE/FORMETEROL FUMARATE 160/4.5 mcg INHALER IH SCH ×2 (09:39→22:22)
[2022-06-18] MEDS ORDERED: cloNIDine-TTS 0.1 MG/24 HRS PATCH.TDWK TD SCH (10:00)
[2022-06-18 10:34] LABS: HEMATOCRIT 26.5 % (32.4-45.2); HEMOGLOBIN 8.7 GM/dL (10.7-15.3); MCH 28.1 pg (25.7-33.7); MCHC 32.6 g/dl (32.0-36.0); MEAN CELL VOLUME 86.1 fl (80-96); MEAN PLT VOLUME 8.7 fl (7.5-11.1); PLATELET COUNT 194 10^3/uL (134-434); RBC 3.08 M/mm3 (3.60-5.2); RDW 12.9 % (11.6-15.6); WHITE BLOOD COUNT 11.1 K/mm3 (4.0-10.0)
[2022-06-18 11:27] LABS: ANISOCYTOSIS 0; HELMET CELLS 0; HOWELL-JOLLY BODIES 0; MACROCYTOSIS 0; OVALOCYTE 0; ROULEAU 0; SICKELED CELLS 0; TARGET CELLS 0; TEAR DROP CELLS 0; TOXIC GRANULATION 0
[2022-06-18] MEDS ORDERED: methylPREDNISolone NA SUCC 125 MG/2 ML VIAL IVPUSH SCH (11:30)
[2022-06-18] MEDS: methylPREDNISolone NA SUCC 40 MG/1 ML VIAL IVPUSH SCH (16:33)
[2022-06-18] MEDS: CALCIUM CARB PO SCH (19:04)
[2022-06-18] MEDS: [UNRECOGNIZED DRUG - OTHER] PO SCH (19:04)
[2022-06-18] MEDS: VIT K1 PO SCH (19:04)
[2022-06-18] MEDS: VITAMIN D3 PO SCH (19:04)
[2022-06-18] MEDS: MONTELUKAST NA 10 MG TABLET PO SCH (22:22)
[2022-06-19] MEDS: methylPREDNISolone NA SUCC 40 MG/1 ML VIAL IVPUSH SCH ×3 (00:02→17:04)
[2022-06-19] MEDS: APIXABAN 2.5 MG TABLET PO SCH ×2 (06:19→21:40)
[2022-06-19] MEDS: carBAMazepine 200 MG TABLET PO SCH ×3 (08:22→17:03)
[2022-06-19] MEDS: lamoTRIgine 100 MG TABLET PO SCH ×3 (08:23→17:03)
[2022-06-19] MEDS: LOSARTAN POTASSIUM 50 MG TABLET PO SCH ×2 (09:22→21:40)
[2022-06-19] MEDS: metoPROLOL SUCCINATE 25 MG TAB.SR.24H (FP) PO SCH (09:22)
[2022-06-19] MEDS: FAMOTIDINE 20 MG TABLET PO SCH (09:22)
[2022-06-19] MEDS: ASPIRIN COATED 81 MG TABLET.EC PO SCH (09:22)
[2022-06-19] MEDS: BUDESONIDE/FORMETEROL FUMARATE 160/4.5 mcg INHALER IH SCH ×2 (17:04→21:40)
[2022-06-19] MEDS: MONTELUKAST NA 10 MG TABLET PO SCH (21:40)
[2022-06-19] MEDS: [UNRECOGNIZED DRUG - OTHER] PO SCH (22:21)
[2022-06-19] MEDS: VIT K1 PO SCH (22:21)
[2022-06-19] MEDS: VITAMIN D3 PO SCH (22:21)
[2022-06-19] MEDS: CALCIUM CARB PO SCH (22:21)
[2022-06-20] MEDS: methylPREDNISolone NA SUCC 40 MG/1 ML VIAL IVPUSH SCH ×2 (00:35→08:06)
[2022-06-20] MEDS: APIXABAN 2.5 MG TABLET PO SCH (05:57)
[2022-06-20] MEDS: carBAMazepine 200 MG TABLET PO SCH ×2 (08:06→17:50)
[2022-06-20] MEDS: lamoTRIgine 100 MG TABLET PO SCH ×2 (08:06→17:50)
[2022-06-20] MEDS: metoPROLOL SUCCINATE 25 MG TAB.SR.24H (FP) PO SCH (10:56)
[2022-06-20] MEDS: LOSARTAN POTASSIUM 50 MG TABLET PO SCH (10:56)
[2022-06-20] MEDS: FAMOTIDINE 20 MG TABLET PO SCH (10:56)
[2022-06-20] MEDS: ASPIRIN COATED 81 MG TABLET.EC PO SCH (10:59)
[2022-06-20] MEDS: BUDESONIDE/FORMETEROL FUMARATE 160/4.5 mcg INHALER IH SCH (12:14)
[2022-06-20] MEDS ORDERED: PANTOPRAZOLE SODIUM 40 MG VIAL IVPUSH SCH (12:30)
[2022-06-20 12:32] LABS: ALBUMIN 3.5 g/dl (3.4-5.0); BILIRUBIN,TOTAL 0.3 mg/dl (0.2-1); CALCIUM 8.9 mg/dl (8.5-10); CREATININE 1.1 mg/dl (0.55-1.3)
[2022-06-20 14:08] VITALS: BP 121/51; PULSE 71; RESP 16; TEMP 98.1
[2022-06-20 15:07] LABS: HEMATOCRIT 31.8 % (32.4-45.2); HEMOGLOBIN 10.3 GM/dL (10.7-15.3); MCH 28.1 pg (25.7-33.7); MCHC 32.4 g/dl (32.0-36.0); MEAN CELL VOLUME 86.8 fl (80-96); MEAN PLT VOLUME 8.7 fl (7.5-11.1); PLATELET COUNT 223 10^3/uL (134-434); RBC 3.66 M/mm3 (3.60-5.2); RDW 13.5 % (11.6-15.6); RETICULOCYTES 1.84 % (0.5-1.5)
== END 2022-06-20 18:35 | disposition home or self-care (01) | DRG 203 ==
LOC: FER 13:09 → FM/S 15:37
PROVIDERS: ADMIT Internal Medicine
DX: J45.901 Unspecified asthma with (acute) exacerbation (principal); G50.0 Trigeminal neuralgia; J32.9 Chronic sinusitis, unspecified; M85.80 Other specified disorders of bone density and structure, unspecified site; B97.4 Respiratory syncytial virus as the cause of diseases classified elsewhere; J47.9 Bronchiectasis, uncomplicated; Z99.89 Dependence on other enabling machines and devices; D64.9 Anemia, unspecified; I48.0 Paroxysmal atrial fibrillation; E78.5 Hyperlipidemia, unspecified; I12.9 Hypertensive chronic kidney disease with stage 1 through stage 4 chronic kidney disease, or unspecified chronic kidney disease; N18.2 Chronic kidney disease, stage 2 (mild); Z86.11 Personal history of tuberculosis
CPT/HCPCS: 0241U-QW; 36415; 71046-TC-FY; 71250-TC; 80053; 82272; 82607; 82728; 83540; 83550; 83735; 84484; 85025; 85027; 85045; 93005; 94640; 97116-GP; 97162-GP; 99285-25

== ENCOUNTER 2022-10-22 07:13 | Observation (INO) | payer OTHER ==
[2022-10-22 08:27] LABS: INR 1.26 (0.83-1.09); PROTHROMBIN TIME (PATIENT) 14.5 SEC (9.7-13.0)
[2022-10-22 08:36] LABS: ALBUMIN 3.4 g/dl (3.4-5.0); BILIRUBIN,TOTAL 0.7 mg/dl (0.2-1); CALCIUM 9.2 mg/dl (8.5-10); TOT PROT 7.2 g/dl (6.4-8.2)
[2022-10-22 08:43] LABS: HEMATOCRIT 29.5 % (32.4-45.2); HEMOGLOBIN 9.7 G/dL (10.7-15.3); MCH 27.1 pg (25.7-33.7); MCHC 32.8 g/dl (32.0-36.0); MEAN CELL VOLUME 82.5 fl (80-96); MEAN PLT VOLUME 8.9 fl (7.5-11.1); PLATELET COUNT 199.4 10^3/uL (134-434); RBC 3.57 10^6/uL (3.60-5.2); RDW 14.6 % (11.6-15.6)
[2022-10-22 09:50] LABS: PLATELET ESTIMATE ADEQUATE
[2022-10-22 09:55] LABS: N-TERMINAL BNP 1231.3 pg/ml (5-450)
[2022-10-22] MEDS ORDERED: FUROSEMIDE 40 MG/4 ML INJECTABLE VIAL IVPUSH ONE (10:07)
[2022-10-22] MEDS ORDERED: FUROSEMIDE 40 MG/4 ML INJECTABLE VIAL ONE (10:23)
[2022-10-22] MEDS: ALBUTEROL SO4 2.5/IPRATROPIUM 0.5 INH SOL 3 ML VIAL.NEB. NEB SCH ×3 (12:00→21:16)
[2022-10-22 12:19] VITALS: RESP 18
[2022-10-22 16:05] VITALS: BMI 22.1
[2022-10-22] MEDS: lamoTRIgine 100 MG TABLET PO SCH ×2 (16:52→21:16)
[2022-10-22] MEDS: carBAMazepine 200 MG TABLET PO SCH ×2 (16:52→21:15)
[2022-10-22] MEDS: APIXABAN 2.5 MG TABLET PO SCH (21:16)
[2022-10-22] MEDS: LOSARTAN POTASSIUM 50 MG TABLET PO SCH (21:16)
[2022-10-22] MEDS: BUDESONIDE/FORMETEROL FUMARATE 160/4.5 mcg INHALER IH SCH (21:18)
[2022-10-23] MEDS: lamoTRIgine 100 MG TABLET PO SCH (06:44)
[2022-10-23] MEDS: carBAMazepine 200 MG TABLET PO SCH (06:44)
[2022-10-23] MEDS ORDERED: FUROSEMIDE 40 MG TABLET (FP) PO ONE (07:30)
[2022-10-23] MEDS: ALBUTEROL SO4 2.5/IPRATROPIUM 0.5 INH SOL 3 ML VIAL.NEB. NEB SCH (08:00)
[2022-10-23 08:37] LABS: CALCIUM 8.5 mg/dl (8.5-10); MAGNESIUM 2.1 mg/dL (1.8-2.4); PHOSPHOROUS 3.8 mg/dl (2.5-4.9)
[2022-10-23 08:58] VITALS: PULSE 72
[2022-10-23 09:58] LABS: BASO % 0.5 % (0-2.0); EOS % 3.2 % (0-4.5); HEMATOCRIT 24.3 % (32.4-45.2); HEMOGLOBIN 8.5 GM/dL (10.7-15.3); LYMPH % 16.2 % (8-40); MCH 27.8 pg (25.7-33.7); MCHC 34.9 g/dl (32.0-36.0); MEAN CELL VOLUME 79.5 fl (80-96); MEAN PLT VOLUME 8.6 fl (7.5-11.1); MONO % 10.5 % (3.8-10.2); NEUT % 69.6 % (42.8-82.8); PLATELET COUNT 190 10^3/uL (134-434); RBC 3.06 M/mm3 (3.60-5.2); RDW 14.1 % (11.6-15.6); WHITE BLOOD COUNT 5.2 K/mm3 (4.0-10.0)
[2022-10-23] MEDS: LOSARTAN POTASSIUM 50 MG TABLET PO SCH (10:26)
[2022-10-23] MEDS: APIXABAN 2.5 MG TABLET PO SCH (10:26)
[2022-10-23] MEDS: BUDESONIDE/FORMETEROL FUMARATE 160/4.5 mcg INHALER IH SCH (10:27)
[2022-10-23] MEDS ORDERED: amLODIPine BESYLATE 5 MG TABLET (FP) PO SCH ×2 (10:45)
[2022-10-23] MEDS ORDERED: metoPROLOL SUCCINATE 25 MG TAB.SR.24H (FP) PO SCH (10:45)
[2022-10-23 13:55] VITALS: BP 139/38; TEMP 99.3
== END 2022-10-23 15:25 | disposition home or self-care (01) ==
LOC: FER 07:13 → FM/S 11:54 → INTOOBSV 11:54 → FM/S 13:11
PROVIDERS: ADMIT Internal Medicine; ATTEND Internal Medicine
PROC: 3E033GC Introduction of Other Therapeutic Substance into Peripheral Vein, Percutaneous Approach (ICD-10-PCS; principal; 2022-10-22)
PROC: 3E0F7SF Introduction of Other Gas into Respiratory Tract, Via Natural or Artificial Opening (ICD-10-PCS; 2022-10-22)
DX: I50.31 Acute diastolic (congestive) heart failure (principal); J18.9 Pneumonia, unspecified organism; J47.9 Bronchiectasis, uncomplicated; R06.02 Shortness of breath; G50.0 Trigeminal neuralgia; J45.909 Unspecified asthma, uncomplicated; G47.33 Obstructive sleep apnea (adult) (pediatric); I67.1 Cerebral aneurysm, nonruptured; Z86.11 Personal history of tuberculosis; D64.9 Anemia, unspecified; I48.0 Paroxysmal atrial fibrillation; I11.0 Hypertensive heart disease with heart failure; Z86.79 Personal history of other diseases of the circulatory system; Z88.8 Allergy status to other drugs, medicaments and biological substances; Z96.642 Presence of left artificial hip joint
CPT/HCPCS: 0241U-QW; 36415; 71045-TC-FY; 80048; 80053; 80061; 82728; 83036; 83540; 83550; 83735; 83880; 84100; 84436; 84443; 84484; 85025; 85027; 85610; 93005; 93306-TC; 94640; 94644; 96374; 97116-GP; 97162-GP; 99285-25; G0378

== ENCOUNTER 2022-12-06 14:41 | Observation (INO) | payer OTHER ==
[2022-12-06 15:19] LABS: HEMATOCRIT 31.6 % (32.4-45.2); HEMOGLOBIN 10.3 G/dL (10.7-15.3); MCHC 32.7 g/dl (32.0-36.0); MEAN CELL VOLUME 82.7 fl (80-96); MEAN PLT VOLUME 9.2 fl (7.5-11.1); PLATELET COUNT 206.1 10^3/uL (134-434); RBC 3.82 10^6/uL (3.60-5.2); RDW 15.2 % (11.6-15.6); WHITE BLOOD COUNT 6.2 10^3/uL (4.0-10.8)
[2022-12-06 15:21] LABS: INR 1.22 (0.83-1.09); PROTHROMBIN TIME (PATIENT) 14.1 SEC (9.7-13.0)
[2022-12-06 15:24] LABS: ACTIVATED PTT 36.7 SECONDS (25.2-36.5)
[2022-12-06 15:25] LABS: PLATELET ESTIMATE ADEQUATE
[2022-12-06 15:55] LABS: ALBUMIN 4.3 g/dl (3.4-5.0); BILIRUBIN,TOTAL 0.1 mg/dl (0.2-1); CALCIUM 9.6 mg/dl (8.5-10); CREATININE 1.3 mg/dl (0.55-1.3); POTASSIUM 4.1 mmol/L (3.5-5.1); TOT PROT 8.3 g/dl (6.4-8.2)
[2022-12-06] MEDS ORDERED: ASPIRIN 81 MG CHEWABLE TABLETS PO ONE (18:45)
[2022-12-06] MEDS ORDERED: ASPIRIN 81 MG CHEWABLE TABLETS ONE (18:50)
[2022-12-06 21:22] VITALS: BMI 22.1
[2022-12-06] MEDS: LOSARTAN POTASSIUM 50 MG TABLET PO SCH (23:58)
[2022-12-06] MEDS: APIXABAN 2.5 MG TABLET PO SCH (23:58)
[2022-12-07] MEDS: APIXABAN 2.5 MG TABLET PO SCH ×3 (08:19→21:17)
[2022-12-07 08:39] LABS: HEMOGLOBIN 10.4 G/dL (10.7-15.3); MCH 26.7 pg (25.7-33.7); MCHC 32.3 g/dl (32.0-36.0); MEAN CELL VOLUME 82.7 fl (80-96); PLATELET COUNT 193.4 10^3/uL (134-434); RBC 3.87 10^6/uL (3.60-5.2); RDW 15.3 % (11.6-15.6); WHITE BLOOD COUNT 5.7 10^3/uL (4.0-10.8)
[2022-12-07 09:23] LABS: PLATELET ESTIMATE ADEQUATE
[2022-12-07] MEDS ORDERED: ROSUVASTATIN CA 40 MG TABLET PO ONE (09:29)
[2022-12-07] MEDS: ASPIRIN 81 MG CHEWABLE TABLETS PO SCH (09:55)
[2022-12-07] MEDS: LOSARTAN POTASSIUM 50 MG TABLET PO SCH ×2 (09:55→21:17)
[2022-12-07] MEDS: BUDESONIDE/FORMETEROL FUMARATE 160/4.5 mcg INHALER IH SCH ×2 (09:56→10:04)
[2022-12-07] MEDS: metoPROLOL SUCCINATE 25 MG TAB.SR.24H (FP) PO SCH (09:56)
[2022-12-07] MEDS: FUROSEMIDE 40 MG TABLET (FP) PO SCH (09:56)
[2022-12-07] MEDS ORDERED: CALCIUM CARB PO SCH (10:00)
[2022-12-07] MEDS ORDERED: VIT K1 PO SCH (10:00)
[2022-12-07] MEDS ORDERED: [UNRECOGNIZED DRUG - OTHER] PO SCH (10:00)
[2022-12-07] MEDS ORDERED: VITAMIN D3 PO SCH (10:00)
[2022-12-07 10:51] LABS: BLOOD UREA NITROGEN 27.1 mg/dL (7-18); CALCIUM 9.5 mg/dL (8.5-10.1)
[2022-12-07 10:54] LABS: CREATININE 1.1 mg/dL (0.55-1.3)
[2022-12-07] MEDS: CHOLECALCIFEROL (VIT D3) 1,000 UNIT (25 MCG) TABLET PO SCH (12:50)
[2022-12-07] MEDS: FLUTICASONE FUROATE IH SCH (18:57)
[2022-12-07] MEDS: VILANTEROL IH SCH (18:57)
[2022-12-07] MEDS: carBAMazepine 100 MG TAB.CHEW PO SCH (20:18)
[2022-12-07] MEDS: amLODIPine BESYLATE 5 MG TABLET (FP) PO SCH (21:17)
[2022-12-07] MEDS: lamoTRIgine 100 MG TABLET PO SCH ×2 (21:17→22:31)
[2022-12-08] MEDS: lamoTRIgine 100 MG TABLET PO SCH ×2 (06:32→14:46)
[2022-12-08] MEDS: carBAMazepine 100 MG TAB.CHEW PO SCH (06:37)
[2022-12-08] MEDS ORDERED: carBAMazepine 200 MG TABLET PO SCH ×2 (07:24→12:00)
[2022-12-08 08:58] LABS: ALBUMIN 4.1 g/dl (3.4-5.0); BILIRUBIN,TOTAL 0.3 mg/dl (0.2-1); CALCIUM 9.7 mg/dl (8.5-10); CREATININE 1.1 mg/dl (0.55-1.3); POTASSIUM 4.6 mmol/L (3.5-5.1); TOT PROT 8.1 g/dl (6.4-8.2)
[2022-12-08 09:19] LABS: HEMOGLOBIN 10.6 GM/dL (10.7-15.3); MCH 26.4 pg (25.7-33.7); MCHC 33.1 g/dl (32.0-36.0); MEAN CELL VOLUME 79.8 fl (80-96); MEAN PLT VOLUME 8.7 fl (7.5-11.1); PLATELET COUNT 223 10^3/uL (134-434); RBC 4.01 M/mm3 (3.60-5.2); RDW 14.9 % (11.6-15.6); WHITE BLOOD COUNT 6.2 K/mm3 (4.0-10.0)
[2022-12-08] MEDS ORDERED: BUDESONIDE/FORMETEROL FUMARATE 160/4.5 mcg INHALER IH SCH (10:00)
[2022-12-08] MEDS: CHOLECALCIFEROL (VIT D3) 1,000 UNIT (25 MCG) TABLET PO SCH (10:11)
[2022-12-08] MEDS: metoPROLOL SUCCINATE 25 MG TAB.SR.24H (FP) PO SCH (10:11)
[2022-12-08] MEDS: amLODIPine BESYLATE 5 MG TABLET (FP) PO SCH (10:11)
[2022-12-08] MEDS: ASPIRIN 81 MG CHEWABLE TABLETS PO SCH (10:12)
[2022-12-08] MEDS: APIXABAN 2.5 MG TABLET PO SCH (10:12)
[2022-12-08] MEDS: LOSARTAN POTASSIUM 50 MG TABLET PO SCH (10:12)
[2022-12-08] MEDS: FUROSEMIDE 40 MG TABLET (FP) PO SCH (10:12)
[2022-12-08] MEDS: FLUTICASONE FUROATE IH SCH (10:40)
[2022-12-08] MEDS: VILANTEROL IH SCH (10:40)
[2022-12-08 14:03] VITALS: BP 118/48; PULSE 73; RESP 18; TEMP 98.1
[2022-12-14] MEDS ORDERED: cloNIDine-TTS 0.1 MG/24 HRS PATCH.TDWK TD SCH (10:00)
== END 2022-12-08 15:29 | disposition home or self-care (01) ==
LOC: FER 14:41 → FM/S 20:09
PROVIDERS: ADMIT Internal Medicine; ATTEND Student in an Organized Health Care Education/Training Program
PROC: 3E0F7SF Introduction of Other Gas into Respiratory Tract, Via Natural or Artificial Opening (ICD-10-PCS; principal; 2022-12-06)
DX: R74.8 Abnormal levels of other serum enzymes (principal); M79.602 Pain in left arm; I12.9 Hypertensive chronic kidney disease with stage 1 through stage 4 chronic kidney disease, or unspecified chronic kidney disease; N18.9 Chronic kidney disease, unspecified; R01.1 Cardiac murmur, unspecified; Z88.8 Allergy status to other drugs, medicaments and biological substances; Z96.642 Presence of left artificial hip joint; I25.10 Atherosclerotic heart disease of native coronary artery without angina pectoris; G47.33 Obstructive sleep apnea (adult) (pediatric); Z99.89 Dependence on other enabling machines and devices; E87.5 Hyperkalemia; I48.0 Paroxysmal atrial fibrillation; E87.1 Hypo-osmolality and hyponatremia; J45.909 Unspecified asthma, uncomplicated
CPT/HCPCS: 36415; 71045-TC-FY; 80048; 80053; 80061; 83880; 84443; 84484; 85025; 85027; 85610; 85730; 86850; 86900; 86901; 87635; 93005; 94640; 99285-25; G0378

== ENCOUNTER 2024-04-04 09:32 | Day surgery (SDC) | payer OTHER ==
[2024-04-01 16:38] VITALS: BMI 22.4
[2024-04-04 10:02] VITALS: RESP 18
[2024-04-04 11:29] VITALS: TEMP 97.1
[2024-04-04 12:01] VITALS: BP 144/54; PULSE 60
== END 2024-04-04 12:03 | disposition home or self-care (01) ==
LOC: FASU-ENDO 09:32
PROVIDERS: ATTEND Internal Medicine Gastroenterology
PROC: 0DB98ZX Excision of Duodenum, Via Natural or Artificial Opening Endoscopic, Diagnostic (ICD-10-PCS; 2024-04-04)
PROC: 0DB68ZX Excision of Stomach, Via Natural or Artificial Opening Endoscopic, Diagnostic (ICD-10-PCS; 2024-04-04)
PROC: 0DJD8ZZ Inspection of Lower Intestinal Tract, Via Natural or Artificial Opening Endoscopic (ICD-10-PCS; principal; 2024-04-04 10:46)
DX: Z12.11 Encounter for screening for malignant neoplasm of colon (principal); K29.50 Unspecified chronic gastritis without bleeding; K57.30 Diverticulosis of large intestine without perforation or abscess without bleeding; D50.9 Iron deficiency anemia, unspecified; K92.1 Melena; Z86.010 Personal history of colon polyps
CPT/HCPCS: 43239; G0105; 88305-TC; 88342-TC